=== PATIENT | female | born 1970 | race Caucasian/White ===

== ENCOUNTER → 2017-03-04 | Outpatient (CLI) | payer BC ==
--- NOTE | 2017-03-04 13:45 | Diagnostic Imaging Report ---
EXAMINATION: Right breast ultrasound. INDICATION: Right breast pain. FINDINGS: The area of pain above the nipple is examined with no underlying abnormality seen. IMPRESSION: Negative study. Clinical followup of the area of pain is recommended. ACR BI-RADS Category 1: Negative. Dictated by: Dictated on workstation # [id number]
--- NOTE | 2017-03-04 13:45 | Diagnostic Imaging Report ---
EXAMINATION: Diagnostic mammogram with tomography performed. The current study was also evaluated with a Computer Aided Detection (CAD) system. INDICATION: Right breast pain. COMPARISON: 11/20/2015. FINDINGS: The breasts are composed of heterogeneously dense parenchyma which may decrease mammographic sensitivity. There is no mass, architectural distortion, or suspicious cluster of calcifications identified. IMPRESSION: Dense breasts with no definite focal lesion seen. An ultrasound evaluation is pending. ACR BI-RADS Category 0: Incomplete. (Needs additional imaging evaluation). Result letter will be mailed to the patient. Note: At least 10% of breast cancer is not imaged by mammography. Dictated by: Dictated on workstation # [id number]
== END ==
LOC: RAD 12:43
PROVIDERS: ATTEND Nurse Practitioner Family
DX: R92.8 Other abnormal and inconclusive findings on diagnostic imaging of breast (principal); N64.4 Mastodynia
CPT/HCPCS: 77066

== ENCOUNTER → 2018-03-15 | Outpatient (CLI) | payer BC ==
--- NOTE | 2018-03-15 11:19 | Diagnostic Imaging Report ---
INDICATION: Routine screening. COMPARISON: 03/04/2017 and 02/08/2015. TECHNIQUE: 2D and 3D bilateral screening mammography was performed with CAD. FINDINGS: Scattered fibroglandular densities are identified bilaterally. The parenchymal pattern is stable. No mass or malignant appearing microcalcifications are seen. The axillae are unremarkable. IMPRESSION: No mammographic features suspicious for malignancy are identified. ACR BI-RADS Category 1: Negative. Result letter will be mailed to the patient. Note: At least 10% of breast cancer is not imaged by mammography. Dictated by: Dictated on workstation # [id number]
== END ==
LOC: RAD 10:07
PROVIDERS: ATTEND Family Medicine
DX: Z12.31 Encounter for screening mammogram for malignant neoplasm of breast (principal)
CPT/HCPCS: 77067

== ENCOUNTER → 2019-04-05 | Outpatient (CLI) | payer BC ==
--- NOTE | 2019-04-05 21:33 | Diagnostic Imaging Report ---
INDICATION: Screening TECHNIQUE: The current study was also evaluated with a Computer Aided Detection (CAD) system. 3-D Tomographic imaging was also performed. COMPARISONS: 03/15/2018, 03/04/2017, 02/08/2015 FINDINGS: The fibroglandular tissue is heterogeneously dense bilaterally. This can limit the sensitivity for detection of small nodules. There is no dominant mass, spiculated lesion or suspicious calcifications identified. The skin, nipples and axillae are unremarkable. There are a few benign type calcifications. IMPRESSION: Category 2 benign. ACR BI-RADS Category 2: Benign findings. Result letter will be mailed to the patient. Note: At least 10% of breast cancer is not imaged by mammography. Dictated by: Dictated on workstation # [id number]
== END ==
LOC: RAD 09:08
PROVIDERS: ATTEND Family Medicine
DX: Z12.31 Encounter for screening mammogram for malignant neoplasm of breast (principal)
CPT/HCPCS: 77067

== ENCOUNTER → 2020-04-06 | Outpatient (CLI) | payer BC ==
--- NOTE | 2020-04-09 09:28 | Diagnostic Imaging Report ---
EXAMINATION: Bilateral mammogram. CLINICAL INDICATION: Screening. COMPARISON: 04/05/2019, 03/15/2018, and 03/04/2017. TECHNIQUE: Screening digital mammography was performed bilaterally with a Computer Aided Detection (CAD) system. FINDINGS: The fibroglandular tissue is heterogeneously dense bilaterally. There is no dominant mass, spiculated lesion, or suspicious calcification identified. The skin, nipples, and axillae are unremarkable. There are a few benign type calcifications. IMPRESSION: Benign findings. ACR BI-RADS Category 2: Benign findings. Result letter will be mailed to the patient. Note: At least 10% of breast cancer is not imaged by mammography. Dictated by: Dictated on workstation # [id number]
== END ==
LOC: RAD 15:00
PROVIDERS: ATTEND Obstetrics & Gynecology
DX: Z12.31 Encounter for screening mammogram for malignant neoplasm of breast (principal)
CPT/HCPCS: 77063; 77067

== ENCOUNTER 2020-09-06 05:30 | Outpatient (RCR) | payer BC ==
[~2020-09-06] VITALS: Ht 162.6 cm; Wt 65.5 kg
[~2020-09-06 05:30] MED LIST: LEVE500T6 PO; LEVO75CA5 PO
== END 2020-09-06 10:26 | disposition home or self-care (01) ==
LOC: PREOP 05:30
PROVIDERS: ATTEND Surgery
DX: Z01.818 Encounter for other preprocedural examination (principal)

== ENCOUNTER → 2020-09-07 | Outpatient (CLI) | payer BC | LOC: LABNPT 05:04 | PROVIDERS: ATTEND Surgery | DX: Z01.812 Encounter for preprocedural laboratory examination (principal); Z53.8 Procedure and treatment not carried out for other reasons ==

== ENCOUNTER 2020-10-29 05:39 | Outpatient (CLI) | payer BC ==
[~2020-10-29] VITALS: Ht 162.6 cm; Wt 66.7 kg
[2020-10-29] MEDS ORDERED: LEVE250T18 PO (11:07)
== END 2020-10-29 12:11 | disposition home or self-care (01) ==
LOC: PREOP 05:39 → EDSTATUS 08:30 → PREOP 12:11
PROVIDERS: ATTEND Surgery
DX: Z01.818 Encounter for other preprocedural examination (principal)

== ENCOUNTER 2020-11-16 10:33 | Day surgery (SDC) | payer BC ==
[~2020-11-16] VITALS: Ht 193 cm; Wt 101.6 kg
[2020-11-16] VITALS (8 sets, daily range): BP systolic 12–142; BP diastolic 55–96
[~2020-11-16 10:33] MED LIST changes: +LEVE250T18 PO
[2020-11-16] MEDS ORDERED: LACTATED RINGERS 1,000 ML IV ONE (11:03)
[2020-11-16] MEDS ORDERED: MIDAZOLAM 2 MG/2 ML (VERSED) VIAL ONE (11:13)
[2020-11-16] MEDS ORDERED: PROPOFOL INJECTION 50 ML IV ONE ×2 (11:13→11:40)
[2020-11-16] MEDS ORDERED: LACTATED RINGERS 1,000 ML IV SCH (11:30)
--- NOTE | 2020-11-16 12:03 | Progress Note-Post Operative ---
Post-Operative Progess Note Surgeon (s)/Mechanical Specialist (s) Surgeon JAYNE DOZIER DO Mechanical Specialist: PRAKASH Colby Pre-Operative Diagnosis Screening Colonoscopy, hx of hemorrhoids and rectal pain Post-Operative Diagnosis Int Hemorrhoids poor prep Procedure & Operative Findings Date of Procedure 11/16/20 Procedure Performed/Findings colonoscopy Anesthesia Type IV sedation by AUTOMOTIVE PARTS COUNTERPERSON Estimated Blood Loss Estimated blood loss (mL): none Specimens/Packing Specimens Removed none JAYNE DOZIER DO Nov 16, 2020 12:03
--- NOTE | 2020-11-16 12:04 | Endoscopy Discharge Instruct ---
Endo Procedure/Findings Findings 1.: Internal Hemorrhoids 2.: Other Findings (poor prep) Discharge Instructions - Activity: You might feel a little sleepy until tomorrow. This is due to the medicine you received to relax you. Until tomorrow, you should: NOT drive a car, operate machinery or power tools. NOT drink any alcoholic beverages. NOT make any important decisions or sign importortant papers. Do not return to work until tomorrow, unless otherwise instructed. Resume previous activities tomorrow. Diet: Start by taking liquids. If you tolerate liquids, advance to solid food. 1.: Colonoscopy in 1 year Notify Physician - If you experience excessive bleeding, unusual abdominal pain, fever, or chest p ain, contact your doctor immediately. JAYNE DOZIER DO Nov 16, 2020 12:04
--- NOTE | 2020-11-16 12:20 | Anesthesia-General Post-Op ---
MAC Patient Condition Mental Status/LOC: Same as Preop Cardiovascular: Satisfactory Nausea/Vomiting: Absent Respiratory: Satisfactory Pain: Controlled Complications: Absent Post Op Complications Complications None Follow Up Care/Instructions Patient Instructions None needed. Anesthesiology Discharge Order Discharge Order Patient is doing well, no complaints, stable vital signs, no apparent adverse anesthesia problems. No complications reported per nursing. ROSALIE VALERA CRNA Nov 16, 2020 12:20
--- NOTE | 2020-11-16 23:17 | OPERATIVE REPORT ---
DATE OF SERVICE: 11/16/2020 PREOPERATIVE DIAGNOSES: 1. Screening colonoscopy. 2. Internal hemorrhoids with rectal pain and occasional bleeding. POSTOPERATIVE DIAGNOSES: Internal hemorrhoids, poor prep. PROCEDURE: Colonoscopy. SURGEON: Art Hooker DO THREAD TRIMMER: Nelda Pacheco, MS3 ANESTHESIA: IV sedation by the RATE CLERK. SPECIMENS: None. BLOOD LOSS: None. FLUIDS: Per anesthesia. POSTOPERATIVE CONDITION: Stable. INDICATION FOR PROCEDURE: The patient is a 50-year-old female who has never had a colonoscopy. She had some rectal pain and some bleeding, but needed a screening colonoscopy. FINDINGS: The patient had unfortunately a poor prep and some internal hemorrhoids. PROCEDURE NOTE: After informed consent was obtained, the patient was brought to the endoscopy suite, placed in bed in left lateral decubitus position. She was administered IV sedation by the RATE CLERK who monitored her vitals the entire time, heart rate, blood pressure and pulse ox. Scope was inserted. Immediately upon entry, noted a lot of fecal material covering the silva, but it was thin, but when we got up to the transverse colon and ascending colon, there was thick pieces of lot of vegetable matter, unable to get all of it off the silva and could not suction up because of large vegetable matter, able to get to the cecum, took a picture of appendiceal orifice withdrew the scope insufflating to look circumferentially at the silva looking the cecum, up the ascending colon to the hepatic flexure, then down the transverse colon, splenic flexure, into descending colon down in the sigmoid, finally into the rectum, retroflexed in rectal vault, saw some internal hemorrhoids, took a picture of this. Again throughout the colon, saw a lot of retained fecal material, do not believe I missed any large polyps or masses, but could have missed a small polyp. She will need a repeat colonoscopy in a year or so. Job ID: [id number] DocumentID: [id number] Dictated Date: 11/16/2020 12:06:53 Pouch Making Machine Operator Date: 11/16/2020 20:03:47 Dictated By: ART HOOKER DO
== END 2020-11-16 12:55 | disposition home or self-care (01) ==
LOC: ENDO 10:33
PROVIDERS: ATTEND Surgery
DX: K62.89 Other specified diseases of anus and rectum (principal); K62.5 Hemorrhage of anus and rectum; K64.8 Other hemorrhoids; Z79.899 Other long term (current) drug therapy; Z80.42 Family history of malignant neoplasm of prostate

== ENCOUNTER → 2021-08-12 | Outpatient (CLI) | payer BC ==
--- NOTE | 2021-08-12 12:16 | Diagnostic Imaging Report ---
INDICATION: Routine screening. Comparison is made with prior mammogram from 04/06/2020 and 04/05/2019. 2-D and 3-D bilateral screening mammography was performed with CAD. Both breasts are heterogeneously dense, limiting the sensitivity of mammography. There are occasional benign calcifications. No mass or malignant-appearing microcalcifications are seen. Axillae are unremarkable. IMPRESSION: No mammographic features suspicious for malignancy are identified. BI-RADS Category 2 ACR BI-RADS Category 2: Benign findings. Result letter will be mailed to the patient. Note: At least 10% of breast cancer is not imaged by mammography. Dictated by: Dictated on workstation # [id number]
== END ==
LOC: RAD 09:30
PROVIDERS: ATTEND Nurse Practitioner Family
DX: Z12.31 Encounter for screening mammogram for malignant neoplasm of breast (principal)
CPT/HCPCS: 77063; 77067

== ENCOUNTER → 2023-03-17 | Outpatient (CLI) | payer BC ==
--- NOTE | 2023-03-17 14:57 | Diagnostic Imaging Report ---
INDICATION: Routine screening. Comparison is made with prior mammogram from 08/12/2021 and 04/06/2020. 2-D and 3-D bilateral screening mammography was performed with CAD. Scattered fibroglandular densities are identified bilaterally. The parenchymal pattern is stable. No mass or malignant-appearing microcalcifications are seen. Axillae are unremarkable. IMPRESSION: No mammographic features suspicious for malignancy are identified. ACR BI-RADS Category 1: Negative. Result letter will be mailed to the patient. Note: At least 10% of breast cancer is not imaged by mammography. BI-RADS Category 1 Dictated by: Dictated on workstation # [id number]
== END ==
LOC: RAD 12:47
PROVIDERS: ATTEND Nurse Practitioner Women's Health
DX: Z12.31 Encounter for screening mammogram for malignant neoplasm of breast (principal)
CPT/HCPCS: 77063; 77067